=== PATIENT | male | born 1955 | race Caucasian/White ===

== ENCOUNTER 2016-10-14 09:38 | Inpatient (IN) | payer SELFPAY ==
[2016-10-14] MEDS ORDERED: ACETAMINOPHEN 325 MG TABLET PO ONE (10:51)
[2016-10-14 11:04] LABS: PROTHROMBIN TIME 14.8 SEC (11.4-15.4)
[2016-10-14 11:09] LABS: HEMATOCRIT 35.7 % (37.9-51.0); HEMOGLOBIN 11.9 g/dL (13.5-17.0); MEAN CORPUSCULAR HEMOGLOBIN 29.8 pg (27.0-33.4); MEAN CORPUSCULAR HGB CONC 33.3 g/dL (32.0-36.0); MEAN CORPUSCULAR VOLUME 90 fl (80-97); RED BLOOD COUNT 3.99 10^6/uL (4.35-5.55); RED CELL DISTRIBUTION WIDTH 13.4 % (11.5-14.0); WHITE BLOOD COUNT 19.5 10^3/uL (4.0-10.5)
[2016-10-14 11:24] LABS: ALANINE AMINOTRANSFERASE 24 U/L (21-72); ALBUMIN 4.2 g/dL (3.5-5.0); ALKALINE PHOSPHATASE 100 U/L (38-126); ANION GAP 14 (5-19); ASPARTATE AMINO TRANSFERASE 37 U/L (17-59); BILIRUBIN,TOTAL 0.9 mg/dL (0.2-1.3); BLOOD UREA NITROGEN 21 mg/dL (7-20); CALCIUM 9.2 mg/dL (8.4-10.2); CARBON DIOXIDE 22 mmol/L (22-30); CHLORIDE 101 mmol/L (98-107); GLUCOSE 159 mg/dL (75-110); SODIUM 137.2 mmol/L (137-145); TOTAL PROTEIN 8.5 g/dL (6.3-8.2)
[2016-10-14] MEDS ORDERED: VANCOMYCIN HCL INJ 1000 MG VIAL IV ONE (11:25)
[2016-10-14] MEDS ORDERED: PIPERACILLIN/TAZOBACTAM 3.375 GM VIAL IV ONE (11:25)
--- NOTE | 2016-10-14 11:26 | ER Document Report ---
ED Fever - General Chief Complaint: Fever Stated Complaint: FEVER Time seen by provider: 11:21 Mode of Arrival: Ambulatory Information source: Patient Notes: This is a 61-year-old man with a history of diabetes and diabetic wound ulcers who presents to the emergency room with generalized weakness, fevers (103.5 at home). Patient does state his had a nonproductive cough. He denies any abdominal pain, dysuria. He denies any headache, photophobia, nausea or vomiting. TRAVEL OUTSIDE OF THE [place] IN LAST 30 DAYS: No - HPI Onset: Last week Onset/Duration: Gradual Quality of pain: No pain Severity: None Pain Level: Denies Context: denies: Cough, Nausea/vomiting, Recent pneumonia, Urinary tract infection Associated symptoms: Fever, Weakness Similar symptoms previously: Yes Recently seen / treated by doctor: Yes - Related Data Allergies/Adverse Reactions: meperidine HCl [From Demerol] Allergy (Verified 10/14/16 09:51) Home Medications: Current Home Medications Acetaminophen with Codeine [Tylenol #3 Tablet] 1 each PO Q4HP PRN 10/14/16 [ History] Amlodipine Besylate [Norvasc 10 mg Tablet] 10 mg PO DAILY 10/14/16 [History] Atorvastatin Calcium [Lipitor 40 mg Tablet] 40 mg PO DAILY 10/14/16 [History] Gabapentin [Neurontin 300 mg Capsule] 300 mg PO Q8HP PRN 10/14/16 [History] Losartan Potassium [Cozaar 100 mg Tablet] 100 mg PO DAILY 10/14/16 [History] Metformin HCl [Glucophage] 500 mg PO BIDACBS 10/14/16 [History] Metoprolol Tartrate [Lopressor 25 mg Tablet] 12.5 mg PO Q12 10/14/16 [History] Past Medical History - General Information source: Patient - Social History Smoking Status: Current Every Day Smoker Cigarette use (# per day): No Chew tobacco use (# tins/day): No Frequency of alcohol use: None Drug Abuse: None Lives with: Family Family History: Reviewed & Not Pertinent Patient has suicidal ideation: No Patient has homicidal ideation: No - Past Medical History Cardiac Medical History: Reports: Hx Hypertension - CONTROLLED/MEDICATED Denies: Hx Heart Attack Pulmonary Medical History: Denies: Hx Asthma, Hx Tuberculosis Neurological Medical History: Reports: Hx Cerebrovascular Accident - 2013,RIGHT STIFF ACHY,FINE MOTOR SKILLS DECREASED, Hx Seizures - LAST SEIZURE 1970,CAUSED FROM HYPOGLYCEMIA/NO MEDS SINCE 1968 Endocrine Medical History: Reports: Hx Diabetes Mellitus Type 2 Renal/ Medical History: Denies: Hx Peritoneal Dialysis GI Medical History: Denies: Hx Hepatitis, Hx Hiatal Hernia, Hx Ulcer Infectious Medical History: Denies: Hx Hepatitis Past Surgical History: Reports: Hx Genitourinary Surgery - Vasectomy, Hx Orthopedic Surgery - Ulnar nerve there, Hx Tonsillectomy. Denies: Hx Open Heart Surgery, Hx Pacemaker - Immunizations Hx Diphtheria, Pertussis, Tetanus Vaccination: Yes Review of Systems - Review of Systems Constitutional: Chills, Fever, Weakness EENT: No symptoms reported Cardiovascular: No symptoms reported Respiratory: No symptoms reported Gastrointestinal: No symptoms reported Genitourinary: No symptoms reported Male Genitourinary: No symptoms reported Musculoskeletal: See HPI Skin: See HPI Hematologic/Lymphatic: No symptoms reported Neurological/Psychological: No symptoms reported Physical Exam - Vital signs Vitals: Temp Pulse Resp BP Pulse Ox 101.8 F H 97 18 108/77 95 10/14/16 09:40 10/14/16 09:40 10/14/16 09:40 10/14/16 09:40 10/14/16 09:40 Notes: Physical exam: GENERAL: 41-year-old man, alert and oriented 3, appears weak and dehydrated. He is answering questions appropriately. There is clearly an anaerobic smell in the room HEAD: Atraumatic, normocephalic. EYES: Pupils equal round and reactive to light, extraocular movements intact, sclera anicteric, conjunctiva are normal. ENT: TMs normal, nares patent, oropharynx clear without exudates. Dry mucous membranes. NECK: Normal range of motion, supple without lymphadenopathy or JVD. LUNGS: Breath sounds clear to auscultation bilaterally and equal. No wheezes rales or rhonchi. HEART: Regular rate and rhythm without murmurs, rubs or gallops. ABDOMEN: Soft, nontender, normoactive bowel sounds. No guarding, no rebound. No masses appreciated. Rectal: The sacrum is clear and without any type of break down, the perirectal area is without any fluctuance or tenderness. EXTREMITIES: Patient has a diabetic ulcer at the bottom of the right foot which is dressed: The dressing was removed; it shows a healing ulcer to the plantar surface over the MTP joint of the right foot. There is no anaerobic smell. There is no pussy drainage were overlying erythema. Right tib-fib: Patient does have chronic changes with dry skin. There is erythema and warmth over the mid tibial region. There is no fluctuance, open wounds or drainage in this area. Left tib-fib: Dressings were removed: There is a significant anaerobic smell coming from this wound. The dressing removal self debridement the wound which revealed a significant eschar. The eschar is now removed and the wound itself looks shallow, erythematous and no gross pus, but there is a significant anaerobic smell. NEUROLOGICAL: Cranial nerves II through XII grossly intact. Normal speech, moving all extremities PSYCH: Normal mood, normal affect. SKIN: As noted under the extremity exam, no other lesions noted. Course - Re-evaluation Re-evalutation: 10/14/16 13:[address] Tripp who will be admitting patient. IV fluids, IV antibiotics begun. The wound essentially depreciated itself on the dressings were removed. Lactic acid less than 4. Patient's vital signs are stable. I discussed case with Dr. Rand who will see patient in consultation for wound management. The wounds were re-just with wet-to-dry. - Vital Signs Vital signs: Temp Pulse Resp BP Pulse Ox 98.1 F 69 16 104/65 99 10/14/16 17:20 10/14/16 17:20 10/14/16 17:20 10/14/16 17:20 10/14/16 17:20 - Laboratory Result Diagrams: 10/14/16 10:10 10/14/16 10:10 Laboratory results interpreted by me: 10/14/16 10/14/16 10/14/16 10:10 10:10 10:10 WBC 19.5 H RBC 3.99 L Hgb 11.9 L Hct 35.7 L Seg Neuts % (Manual) 87 H Lymphocytes % (Manual) 4 L Abs Neuts (Manual) 17.9 H ESR 98 H BUN 21 H Glucose 159 H C-Reactive Protein Total Protein 8.5 H Urine Blood 10/14/16 10/14/16 10:10 16:25 WBC RBC Hgb Hct Seg Neuts % (Manual) Lymphocytes % (Manual) Abs Neuts (Manual) ESR BUN Glucose C-Reactive Protein 168.0 H Total Protein Urine Blood SMALL H - Diagnostic Test Radiology reviewed: Image reviewed, Reports reviewed - Chest x-ray shows no obvious infiltrates. Right foot shows some irregularities of the bone which may be osteomyelitis. Critical Care Note - Critical Care Note Total time excluding time spent on procedures (mins): 80 Discharge - Discharge Clinical Impression: diabetic foot infection, cellulitis, sepsis Condition: Serious Disposition: ADMITTED INPATIENT Admitting Provider: Tripp Unit Admitted: Telemetry
[2016-10-14 11:31] LABS: BAND NEUTROPHILS % (MANUAL) 5 % (3-5); BASOPHILS % (MANUAL) 0 % (0-2); EOSINOPHILS % (MANUAL) 0 % (0-6); LYMPHOCYTES % (MANUAL) 4 % (13-45); TOTAL CELLS COUNTED 100
[2016-10-14 11:33] LABS: RBC MORPHOLOGY COMMENT NORMO-CYTIC/CHROMIC; TOXIC GRANULATION SLIGHT; TOXIC VACUOLATION PRESENT
[2016-10-14] MEDS: NORMAL SALINE 1000 ML 1,000 ML IV PRN ×2 (12:15→12:48)
[2016-10-14] MEDS ORDERED: NORMAL SALINE 1000 ML 1,000 ML IV PRN (16:55)
[2016-10-14] MEDS ORDERED: OXYCODONE-ACETAMINOPHEN 5-325 MG TABLET PO PRN (16:55)
[2016-10-14] MEDS ORDERED: ACETAMINOPHEN 325 MG TABLET PO PRN (16:55)
[2016-10-14] MEDS ORDERED: ONDANSETRON HCL INJ/PF 4 MG/2 ML SDV IV PRN (16:55)
[2016-10-14 16:57] LABS: APPEARANCE,URINE CLEAR; BILIRUBIN,URINE NEGATIVE (NEGATIVE); GLUCOSE, URINE NEGATIVE (NEGATIVE); KETONES,URINE NEGATIVE (NEGATIVE); LEUKOCYTE ESTERASE,URINE NEGATIVE (NEGATIVE); NITRITE,URINE NEGATIVE (NEGATIVE); PROTEIN,URINE NEGATIVE (NEGATIVE); URINE SPECIFIC GRAVITY 1.008; UROBILINOGEN,URINE NEGATIVE mg/dL (<2.0)
[2016-10-14] MEDS ORDERED: GLUCAGON,HUMAN RECOMB 1 MG INJ IM PRN (16:58)
[2016-10-14] MEDS ORDERED: DEXTROSE 40% GEL 15 GM TUBE PO PRN ×2 (16:58)
[2016-10-14] MEDS ORDERED: DEXTROSE 50%-WATER 25 GM/50 ML DISP.SYRIN IV PRN ×2 (16:58)
[2016-10-14] MEDS ORDERED: INSULIN LISPRO 100 UNIT/ML 3 ML VIAL SUBCUT PRN (16:58)
[2016-10-14] MEDS ORDERED: VANCOMYCIN HCL 0 MG in DEXTROSE 5%-WATER 250 ML IV NR (17:00)
--- NOTE | 2016-10-14 17:52 | PDOC H&P ---
History of Present Illness Admission Date/PCP: 10/14/16 16:55 VICKY DUNAWAY MD Patient complains of: Fever weakness History of Present Illness: KASI MCCAIN JR is a 61 year old male This is a 61-year-old male with the history of the type II diabetes mellitus history of the cerebrovascular accident and history of the chronic right foot wound and currently see her Dr. Ward and also see in the wound care long time. Patient start complaining of fever since last couple of days and feeling weak not doing very well and call Dr. Ward office and suggest come to the emergency department. Patient's also complains some respiratory symptoms and mild cough pt denied any chest pain no shortness of the breath in the ER ptwhite count was elevated and patient's have a 101 fever and patient's a right foot x-ray possible osteomyelitis decided to admit in the hospital patient also received the IV vancomycin and other antibiotic. Saw the patient in the floor patient is doing well denied any foot pain to level some mild respiratory symptoms denied any other problem Past Medical History Cardiac Medical History: Reports: Hypertension - CONTROLLED/MEDICATED Denies: Myocardial Infarction Pulmonary Medical History: Denies: Asthma, Tuberculosis Neurological Medical History: Reports: Hemorrhagic CVA, Seizures - LAST SEIZURE 1970,CAUSED FROM HYPOGLYCEMIA/NO MEDS SINCE 1968 Endocrine Medical History: Reports: Diabetes Mellitus Type 2 GI Medical History: Denies: Hepatitis, Hiatal Hernia Hematology: Denies: Anemia, Sickle Cell Disease Past Surgical History Past Surgical History: Reports: Orthopedic Surgery - Ulnar nerve there, Tonsillectomy Denies: Pacemaker Social History Smoking Status: Never Smoker Frequency of Alcohol Use: Occasional Hx Recreational Drug Use: No Drugs: None Hx Prescription Drug Abuse: No - Advance Directive Resuscitation Status: Full Code Family History Family History: Reviewed & Not Pertinent Parental Family History Reviewed: Yes Children Family History Reviewed: Yes Sibling(s) Family History Reviewed.: Yes Medication/Allergy Home Medications: Acetaminophen with Codeine [Tylenol #3 Tablet] 1 each PO Q4HP PRN 10/14/16 Amlodipine Besylate [Norvasc 10 mg Tablet] 10 mg PO DAILY 10/14/16 Atorvastatin Calcium [Lipitor 40 mg Tablet] 40 mg PO DAILY 10/14/16 Gabapentin [Neurontin 300 mg Capsule] 300 mg PO Q8HP PRN 10/14/16 Losartan Potassium [Cozaar 100 mg Tablet] 100 mg PO DAILY 10/14/16 Metformin HCl [Glucophage] 500 mg PO BIDACBS 10/14/16 Metoprolol Tartrate [Lopressor 25 mg Tablet] 12.5 mg PO Q12 10/14/16 Allergies/Adverse Reactions: meperidine HCl [From Demerol] Allergy (Verified 10/14/16 09:51) Review of Systems Constitutional: PRESENT: chills, fatigue, fever(s), weakness Ears: ABSENT: as per HPI, hearing changes, other Nose, Mouth, and Throat: ABSENT: as per HPI, headache(s), mouth pain, sore throat, vertigo, other Cardiovascular: ABSENT: as per HPI, chest pain, dyspnea on exertion, edema, orthropnea, palpitations, other Respiratory: PRESENT: cough Gastrointestinal: ABSENT: as per HPI, abdominal pain, bloating, coffee ground emesis, constipation, diarrhea, dysphagia, heartburn, hematemesis, hematochezia , melena, nausea, vomiting, other Genitourinary: PRESENT: difficulty urinating Musculoskeletal: PRESENT: muscle weakness Neurological: PRESENT: weakness. ABSENT: as per HPI, abnormal gait, abnormal movements, abnormal speech, confusion, convulsions, dizziness, focal weakness, frequent falls, lack of coordination, memory loss, numbness, paresthesias, restless legs, syncope, tingling, tremor(s), vertigo, other Psychiatric: PRESENT: depression Physical Exam Vital Signs: Temp Pulse Resp BP Pulse Ox 98.1 F 69 16 104/65 99 10/14/16 17:20 10/14/16 17:20 10/14/16 17:20 10/14/16 17:20 10/14/16 17:20 Intake & Output 10/13/16 10/14/16 10/15/16 06:59 06:59 06:59 Weight 105.5 kg General appearance: PRESENT: no acute distress Head exam: PRESENT: normocephalic Eye exam: PRESENT: PERRLA Mouth exam: PRESENT: neck supple Neck exam: PRESENT: full ROM Respiratory exam: PRESENT: clear to auscultation rebecca. ABSENT: wheezes Cardiovascular exam: PRESENT: +S1, +S2 GI/Abdominal exam: PRESENT: normal bowel sounds, soft. ABSENT: tenderness Extremities exam: PRESENT: pedal edema Additional comments: The right foot the dressing intact peripheral pulses diff palpate Neurological exam: PRESENT: alert, awake, oriented to person, oriented to place , oriented to time, oriented to situation Psychiatric exam: PRESENT: normal mood Skin exam: PRESENT: normal color Results Impressions: Chest X-Ray 10/14/16 10:51 IMPRESSION: NO SIGNIFICANT RADIOGRAPHIC FINDING IN THE CHEST. Tibia/Fibula X-Ray 10/14/16 11:26 IMPRESSION: Minimal soft tissue irregularity lateral aspect of the distal left calf. Axial compromised by overlying bandage artifact. No air within the soft tissue of either tib-fib. No radiographic evidence of osteomyelitis. Foot X-Ray 10/14/16 11:27 IMPRESSION: Bandage artifact along the medial aspect of the distal foot. Slightly irregular lucent changes involving the head of the 3rd metatarsal at the metatarsophalangeal joint that could represent developing infection or osteomyelitis. Three-phase bone scan or MRI the foot may be a consideration. Other previously described findings are stable. Assessment & Plan - Diagnosis (1) Fever Qualifiers: Fever type: unspecified Qualified Code(s): R50.9 - Fever, unspecified Is this a current diagnosis for this admission?: YesPlan: Most likely from the foot infections possible upper respiratory tract infections also will get the blood culture urine culture and wound culture and the flu test Start the IV zosyn and vancomycin until the cultures come back (2) Septicemia Is this a current diagnosis for this admission?: YesPlan: Due to the about conditions with continuous IV antibiotic (3) Foot osteomyelitis, right Qualifiers: Chronicity: chronic Qualified Code(s): M86.671 - Other chronic osteomyelitis, right ankle and foot Is this a current diagnosis for this admission?: YesPlan: We will get the MRI of the foot also consult the general surgery (4) Type II diabetes mellitus Qualifiers: Diabetes mellitus complication status: with unspecified complications Is this a current diagnosis for this admission?: YesPlan: Continues a sliding scale with [facility] protocol (5) Benign essential HTN Is this a current diagnosis for this admission?: YesPlan: Continuous current medication (6) Stroke Is this a current diagnosis for this admission?: YesPlan: Stable (7) Upper respiratory tract infection Qualifiers: URI type: unspecified URI Qualified Code(s): J06.9 - Acute upper respiratory infection, unspecified Is this a current diagnosis for this admission?: YesPlan: Get the flu test - Time Time Spent: 30 to 50 Minutes Medications reviewed and adjusted accordingly: Yes Anticipated discharge: Home - Inpatient Certification Medical Necessity: Need For IV Fluids, Need for IV Antibiotics Post Hospital Care: D/C [employer] Documentation - Plan Summary Plan Summary: Start the IV antibiotic get the MRI and consult the general surgery
--- NOTE | 2016-10-14 18:56 | PDOC CONSULTATION ---
Consultation Consult Date: 10/14/16 Attending physician:: VICKY DUNAWAY Consult reason:: Foot problems History of Present Illness Admission Date/PCP: 10/14/16 16:55 VICKY DUNAWAY MD History of Present Illness: KASI MCCAIN JR is a 61 year old male This is a 61-year-old male with the history of the type II diabetes mellitus history of the cerebrovascular accident and history of the chronic right foot wound and currently see her Dr. Ward and also see in the wound care long time. Patient start complaining of fever since last couple of days and feeling weak not doing very well and call Dr. Ward office and suggest come to the emergency department. Patient's also complains some respiratory symptoms and mild cough pt denied any chest pain no shortness of the breath in the ER ptwhite count was elevated and patient's have a 101 fever and patient's a right foot x-ray possible osteomyelitis decided to admit in the hospital patient also received the IV vancomycin and other antibiotic. Saw the patient in the floor patient is doing well denied any foot pain to level some mild respiratory symptoms denied any other problem Surgeons addendum: The patient is 3 years status post CVA, with right hemiparesis, partial. Has a long history of ulceration to the lower lateral aspect of his left leg. Most recent episode occurred 6 weeks ago by his report. 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 Patient denies increased pain, drainage, swelling or any other problems with his feet. Most recently had an Unna boot on the left leg being managed by Dr. Ward. Patient does report coughing up some sputum recently, and sepsis symptoms as described above. Imaging studies today including x-rays of the right foot, and tib-fib bilaterally show soft tissue changes to the left distal and lateral calf region , and probable early appearing changes to the right third metatarsal phalangeal region. There is no evidence of soft tissue gas. Past Medical History Cardiac Medical History: Reports: Hypertension - CONTROLLED/MEDICATED Denies: Myocardial Infarction Pulmonary Medical History: Denies: Asthma, Tuberculosis Neurological Medical History: Reports: Hemorrhagic CVA, Seizures - LAST SEIZURE 1970,CAUSED FROM HYPOGLYCEMIA/NO MEDS SINCE 1968 Endocrine Medical History: Reports: Diabetes Mellitus Type 2 GI Medical History: Denies: Hepatitis, Hiatal Hernia Hematology: Denies: Anemia, Sickle Cell Disease Past Surgical History Past Surgical History: Reports: Orthopedic Surgery - Ulnar nerve there, Tonsillectomy Denies: Pacemaker Social History Smoking Status: Never Smoker Frequency of Alcohol Use: Occasional Hx Recreational Drug Use: No Drugs: None Hx Prescription Drug Abuse: No - Advance Directive Resuscitation Status: Full Code Family History Family History: Reviewed & Not Pertinent Parental Family History Reviewed: Yes Children Family History Reviewed: Yes Sibling(s) Family History Reviewed.: Yes Medication/Allergy Home Medications: Acetaminophen with Codeine [Tylenol #3 Tablet] 1 each PO Q4HP PRN 10/14/16 Amlodipine Besylate [Norvasc 10 mg Tablet] 10 mg PO DAILY 10/14/16 Atorvastatin Calcium [Lipitor 40 mg Tablet] 40 mg PO DAILY 10/14/16 Gabapentin [Neurontin 300 mg Capsule] 300 mg PO Q8HP PRN 10/14/16 Losartan Potassium [Cozaar 100 mg Tablet] 100 mg PO DAILY 10/14/16 Metformin HCl [Glucophage] 500 mg PO BIDACBS 10/14/16 Metoprolol Tartrate [Lopressor 25 mg Tablet] 12.5 mg PO Q12 10/14/16 Allergies/Adverse Reactions: meperidine HCl [From Demerol] Allergy (Verified 10/14/16 09:51) Physical Exam Vital Signs: Temp Pulse Resp BP Pulse Ox 98.1 F 69 16 104/65 99 10/14/16 17:20 10/14/16 17:20 10/14/16 17:20 10/14/16 17:20 10/14/16 17:20 Intake & Output 10/13/16 10/14/16 10/15/16 06:59 06:59 06:59 Intake Total 490 Balance 490 Weight 105.5 kg General appearance: PRESENT: no acute distress Head exam: PRESENT: normocephalic Eye exam: PRESENT: other Ear exam: PRESENT: normal external ear exam - Some disconjugate gaze Mouth exam: PRESENT: moist Respiratory exam: PRESENT: clear to auscultation rebecca Cardiovascular exam: PRESENT: RRR Pulses: PRESENT: normal carotid pulses, normal radial pulses Vascular exam: PRESENT: normal capillary refill GI/Abdominal exam: PRESENT: soft Rectal exam: PRESENT: deferred Musculoskeletal exam: PRESENT: other - Left lower extremity examined. Evidence of recent Unna boot. There is a chronic ulcerated area to the lateral lower leg above the malleolus approximately 5 x 10 cm, with evidence of the chronic partial regranulation. Does note, foul smell or evidence of eliot cellulitis. The left foot is warm although I cannot palpate pulses. No obvious deformity of the toes Right foot examined. His chronic exfoliation of skin with rosaline- epithelium underlying, intact healthy no drainage no clinical signs of infection. The chronic changes to the metacarpal phalangeal joints, worse toes 1 and 2 and 3. I cannot detect any open wounds, foul smell or drainage. Results Impressions: Chest X-Ray 10/14/16 10:51 IMPRESSION: NO SIGNIFICANT RADIOGRAPHIC FINDING IN THE CHEST. Tibia/Fibula X-Ray 10/14/16 11:26 IMPRESSION: Minimal soft tissue irregularity lateral aspect of the distal left calf. Axial compromised by overlying bandage artifact. No air within the soft tissue of either tib-fib. No radiographic evidence of osteomyelitis. Foot X-Ray 10/14/16 11:27 IMPRESSION: Bandage artifact along the medial aspect of the distal foot. Slightly irregular lucent changes involving the head of the 3rd metatarsal at the metatarsophalangeal joint that could represent developing infection or osteomyelitis. Three-phase bone scan or MRI the foot may be a consideration. Other previously described findings are stable. Assessment & Plan - Diagnosis (1) Foot osteomyelitis, right Qualifiers: Chronicity: chronic Qualified Code(s): M86.671 - Other chronic osteomyelitis, right ankle and foot Is this a current diagnosis for this admission?: YesPlan: 1. The right foot has chronic deformities of the metatarsal phalangeal joints likely secondary to diabetes mellitus, and previous stroke. Plain films suggest right third metatarsal head abnormality; there is no active soft tissue ulcer at this time. 2. The right lower extremity has evidence of reepithelialization from the subacute cellulitis. Currently there is no active infection in the right lower leg. 3. The chronic left lower extremity lateral super malleolus wound shows evidence of slow, incomplete healing with biofilm. I do not see any evidence of acute infection requiring drainage, debridement etc. 4. Will initiate dressing changes, and await arteriographic and radiographic evaluation. (2) Fever Qualifiers: Fever type: unspecified Qualified Code(s): R50.9 - Fever, unspecified Is this a current diagnosis for this admission?: Yes (3) Benign essential HTN Is this a current diagnosis for this admission?: Yes - Time Time Spent: 30 to 50 Minutes Critical Time spent with patient: 15-24 minutes Anticipated discharge: Home
[2016-10-14] MEDS ORDERED: PIPERACILLIN SODIUM/TAZOBACTAM 3.375 GM in NORMAL SALINE 100 ML IV ONE (19:00)
[2016-10-14] MEDS ORDERED: LOSARTAN POTASSIUM 50 MG TABLET PO ONE (19:00)
[2016-10-14] MEDS: VANCOMYCIN HCL 1,250 MG in DEXTROSE 5%-WATER 250 ML IV SCH (22:22)
[2016-10-14] MEDS: METOPROLOL TARTRATE 25 MG TABLET PO SCH (23:50)
[2016-10-15] MEDS: PIPERACILLIN SODIUM/TAZOBACTAM 3.375 GM in NORMAL SALINE 100 ML IV SCH ×4 (01:08→17:19)
[2016-10-15] MEDS: GABAPENTIN 300 MG CAPSULE PO PRN ×3 (01:46→19:19)
[2016-10-15 05:57] LABS: ABSOLUTE BASOPHILS # (AUTO) 0.1 10^3/uL (0.0-0.2); ABSOLUTE EOSINOPHILS # (AUTO) 0.1 10^3/uL (0.0-0.6); ABSOLUTE LYMPHOCYTES (AUTO) 1.3 10^3/uL (0.5-4.7); ABSOLUTE MONOCYTES (AUTO) 1.9 10^3/uL (0.1-1.4); ABSOLUTE NEUT (AUTO) 8.5 10^3/uL (1.7-8.2); BASOPHILS % (AUTO) 0.6 % (0-2); EOSINOPHILS % (AUTO) 1.3 % (0-6); HEMATOCRIT 31.3 % (37.9-51.0); HEMOGLOBIN 10.6 g/dL (13.5-17.0); HGB HCT DIFFERENCE 0.5; LYMPHOCYTES % (AUTO) 10.6 % (13-45); MEAN CORPUSCULAR HEMOGLOBIN 29.9 pg (27.0-33.4); MEAN CORPUSCULAR HGB CONC 33.8 g/dL (32.0-36.0); MEAN CORPUSCULAR VOLUME 89 fl (80-97); MONOCYTES % (AUTO) 15.9 % (3-13); RED BLOOD COUNT 3.54 10^6/uL (4.35-5.55); RED CELL DISTRIBUTION WIDTH 13.7 % (11.5-14.0); SEGMENTED NEUTROPHILS % (AUTO) 71.6 % (42-78); WHITE BLOOD COUNT 11.9 10^3/uL (4.0-10.5)
[2016-10-15 06:09] LABS: ANION GAP 11 (5-19); BLOOD UREA NITROGEN 17 mg/dL (7-20); CALCIUM 8.4 mg/dL (8.4-10.2); CARBON DIOXIDE 26 mmol/L (22-30); CHLORIDE 104 mmol/L (98-107); CREATININE RESULT 0.98 mg/dL (0.52-1.25); GLUCOSE 97 mg/dL (75-110); POTASSIUM 4.3 mmol/L (3.6-5.0); SODIUM 140.6 mmol/L (137-145)
[2016-10-15] MEDS: AMLODIPINE BESYLATE 10 MG TABLET PO SCH (10:47)
[2016-10-15] MEDS: LOSARTAN POTASSIUM 50 MG TABLET PO SCH (10:48)
[2016-10-15] MEDS: METOPROLOL TARTRATE 25 MG TABLET PO SCH ×2 (10:48→22:36)
[2016-10-15] MEDS: METFORMIN HCL 500 MG TABLET PO SCH ×2 (10:49→17:19)
[2016-10-15] MEDS: ATORVASTATIN CALCIUM 40 MG TABLET PO SCH (10:49)
[2016-10-15] MEDS: DOCUSATE SODIUM 100 MG CAPSULE PO SCH (10:49)
[2016-10-15] MEDS: ENOXAPARIN SODIUM INJ 40 MG/0.4 ML DISP.SYRIN SUBCUT SCH (10:50)
[2016-10-15] MEDS: VANCOMYCIN HCL 1,250 MG in DEXTROSE 5%-WATER 250 ML IV SCH ×2 (10:53→22:36)
--- NOTE | 2016-10-15 13:10 | XCELERA REPORT ---
[address] [address] Lower Extremity Arterial Evaluation Name: KASI MCCAIN JR Age: 61 yrs Gender: Male : 1955 Patient Status: Inpatient Patient Location: [id number] Study Date: 10/15/2016 09:52 AM Procedure: A color flow and duplex scan of the lower extremity arteries was performed bilaterally with velocity and waveform anaylsis. 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 The ankle-brachial index is 1.23. 0% stenosis is noted. Left Side Arterial Evaluation Normal velocity, waveform and triphasic flow are present, from the Common Femoral artery down to the infrageniculate vessels. The ankle-brachial index is 1.25. 0 % stenosis is noted. Interpretation Summary No hemodynamically significant lesions in the bilateral lower extremities, on duplex imaging, at rest. : MAURICE BENAVIDES > Giovanni Piper
--- NOTE | 2016-10-15 13:53 | PDOC PROGRESS REPORT ---
Subjective Progress Note for:: 10/15/16 Subjective:: pt is doing well afebrile nocp no sob pt seen by surgery and s/o cont ax and no need any surgical intenvention Physical Exam Vital Signs: Temp Pulse Resp BP Pulse Ox 99.1 F 85 12 149/77 H 100 10/15/16 12:01 10/15/16 12:01 10/15/16 12:01 10/15/16 12:01 10/15/16 12:01 Intake & Output 10/14/16 10/15/16 10/16/16 06:59 06:59 06:59 Intake Total 2313 Balance 2313 Weight 109.4 kg General appearance: PRESENT: no acute distress Eye exam: PRESENT: PERRLA Mouth exam: PRESENT: neck supple Respiratory exam: PRESENT: clear to auscultation rebecca Cardiovascular exam: PRESENT: +S1, +S2 GI/Abdominal exam: PRESENT: normal bowel sounds, soft. ABSENT: tenderness Extremities exam: ABSENT: pedal edema Additional comments: dressing intact both leg Psychiatric exam: PRESENT: anxious Results Laboratory Results: 10/15/16 04:51 10/15/16 04:51 10/15/16 10/15/16 04:51 04:51 WBC 11.9 H RBC 3.54 L Hgb 10.6 L Hct 31.3 L MCV 89 MCH 29.9 MCHC 33.8 RDW 13.7 Plt Count 220 Seg Neutrophils % 71.6 Lymphocytes % 10.6 L Monocytes % 15.9 H Eosinophils % 1.3 Basophils % 0.6 Absolute Neutrophils 8.5 H Absolute Lymphocytes 1.3 Absolute Monocytes 1.9 H Absolute Eosinophils 0.1 Absolute Basophils 0.1 Sodium 140.6 Potassium 4.3 Chloride 104 Carbon Dioxide 26 Anion Gap 11 BUN 17 Creatinine 0.98 Est GFR ( Amer) > 60 Est GFR (Non-Af Amer) > 60 Glucose 97 Calcium 8.4 Impressions: Chest X-Ray 10/14/16 10:51 IMPRESSION: NO SIGNIFICANT RADIOGRAPHIC FINDING IN THE CHEST. Tibia/Fibula X-Ray 10/14/16 11:26 IMPRESSION: Minimal soft tissue irregularity lateral aspect of the distal left calf. Axial compromised by overlying bandage artifact. No air within the soft tissue of either tib-fib. No radiographic evidence of osteomyelitis. Foot X-Ray 10/14/16 11:27 IMPRESSION: Bandage artifact along the medial aspect of the distal foot. Slightly irregular lucent changes involving the head of the 3rd metatarsal at the metatarsophalangeal joint that could represent developing infection or osteomyelitis. Three-phase bone scan or MRI the foot may be a consideration. Other previously described findings are stable. Assessment & Plan - Diagnosis (1) Fever Qualifiers: Fever type: unspecified Qualified Code(s): R50.9 - Fever, unspecified Is this a current diagnosis for this admission?: YesPlan: awit for culture cont curr medication (2) Septicemia Is this a current diagnosis for this admission?: YesPlan: Due to the about conditions with continuous IV antibiotic (3) Foot osteomyelitis, right Qualifiers: Chronicity: chronic Qualified Code(s): M86.671 - Other chronic osteomyelitis, right ankle and foot Is this a current diagnosis for this admission?: YesPlan: We will get the MRI of the foot also consult the general surgery (4) Type II diabetes mellitus Qualifiers: Diabetes mellitus complication status: with unspecified complications Is this a current diagnosis for this admission?: YesPlan: Continues a sliding scale with [facility] protocol (5) Benign essential HTN Is this a current diagnosis for this admission?: YesPlan: Continuous current medication (6) Stroke Is this a current diagnosis for this admission?: YesPlan: Stable (7) Upper respiratory tract infection Qualifiers: URI type: unspecified URI Qualified Code(s): J06.9 - Acute upper respiratory infection, unspecified; B97.89 - Other viral agents as the cause of diseases classified elsewhere Is this a current diagnosis for this admission?: YesPlan: all stable - Time Time Spent with patient: 15-24 minutes Medications reviewed and adjusted accordingly: Yes Anticipated discharge: Home - Inpatient Certification Medical Necessity: Need Close Monitoring Due to Risk of Patient Decompensation, Need for IV Antibiotics
--- NOTE | 2016-10-15 17:11 | PDOC PROGRESS REPORT ---
Subjective Subjective:: Reports still has swelling and tenderness of his right lower extremity, but it has improved. Reports limited ability to elevate yesterday due to variety of tests, studies & transport. Nursing has just cleansed it and in doing so removed some skin/slough. Physical Exam Vital Signs: Temp Pulse Resp BP Pulse Ox 99.1 F 85 12 149/77 H 100 10/15/16 12:01 10/15/16 12:01 10/15/16 12:01 10/15/16 12:01 10/15/16 12:01 Intake & Output 10/14/16 10/15/16 10/16/16 06:59 06:59 06:59 Intake Total 2313 Balance 2313 Weight 109.4 kg General appearance: PRESENT: no acute distress, obese Head exam: PRESENT: normocephalic Extremities exam: PRESENT: other - Left lateral malleolus ulcer, at least stage II. Fibrinous exudate in the base, dry scrubbed with gauze. Redressed with Telfa and Kerlix gauze. Right lower extremity with edema, erythema and induration starting in the rear foot/ankle and extending up almost to the tibial plateau.. Patient reports this is improved. He has a first metatarsal head ulcer, subcentimeter, full-thickness, appears to be stage III. No drainage. No other open sores are noted on the leg. Redressed with gauze 4 x 4 's and Kerlix roll. Patient's lower extremities then placed in a elevated position, over the level of the heart. Neurological exam: PRESENT: alert, oriented to person, oriented to place, oriented to time, oriented to situation Psychiatric exam: PRESENT: appropriate affect, normal mood Results Laboratory Results: 10/15/16 04:51 10/15/16 04:51 10/15/16 10/15/16 04:51 04:51 WBC 11.9 H RBC 3.54 L Hgb 10.6 L Hct 31.3 L MCV 89 MCH 29.9 MCHC 33.8 RDW 13.7 Plt Count 220 Seg Neutrophils % 71.6 Lymphocytes % 10.6 L Monocytes % 15.9 H Eosinophils % 1.3 Basophils % 0.6 Absolute Neutrophils 8.5 H Absolute Lymphocytes 1.3 Absolute Monocytes 1.9 H Absolute Eosinophils 0.1 Absolute Basophils 0.1 Sodium 140.6 Potassium 4.3 Chloride 104 Carbon Dioxide 26 Anion Gap 11 BUN 17 Creatinine 0.98 Est GFR ( Amer) > 60 Est GFR (Non-Af Amer) > 60 Glucose 97 Calcium 8.4 Impressions: Chest X-Ray 10/14/16 10:51 IMPRESSION: NO SIGNIFICANT RADIOGRAPHIC FINDING IN THE CHEST. Tibia/Fibula X-Ray 10/14/16 11:26 IMPRESSION: Minimal soft tissue irregularity lateral aspect of the distal left calf. Axial compromised by overlying bandage artifact. No air within the soft tissue of either tib-fib. No radiographic evidence of osteomyelitis. Foot X-Ray 10/14/16 11:27 IMPRESSION: Bandage artifact along the medial aspect of the distal foot. Slightly irregular lucent changes involving the head of the 3rd metatarsal at the metatarsophalangeal joint that could represent developing infection or osteomyelitis. Three-phase bone scan or MRI the foot may be a consideration. Other previously described findings are stable. Assessment & Plan - Diagnosis (1) Type II diabetes mellitus Qualifiers: Diabetes mellitus complication status: with unspecified complications Is this a current diagnosis for this admission?: YesPlan: Per internal medicine. (2) Cellulitis of right lower leg Is this a current diagnosis for this admission?: YesPlan: Patient reports improving. White count is improved. Continue antibiotics. (3) Diabetic ulcer of right foot Qualifiers: Diabetes mellitus type: type 2 Qualified Code(s): E11.621 - Type 2 diabetes mellitus with foot ulcer; L97.519 - Non-pressure chronic ulcer of other part of right foot with unspecified severity Is this a current diagnosis for this admission?: YesPlan: Arterial ultrasound studies did not show any compromise down to the level of the infrageniculate's. Questionable as to whether there is osteomyelitis. Internal medicine has ordered an MRI to delineate. Will need long-term antibiotics if he does. Surgery will sign off. Reconsult as necessary.
[2016-10-16] MEDS: PIPERACILLIN SODIUM/TAZOBACTAM 3.375 GM in NORMAL SALINE 100 ML IV SCH ×5 (00:37→23:20)
[2016-10-16 04:46] LABS: ABSOLUTE BASOPHILS # (AUTO) 0.1 10^3/uL (0.0-0.2); ABSOLUTE EOSINOPHILS # (AUTO) 0.2 10^3/uL (0.0-0.6); ABSOLUTE LYMPHOCYTES (AUTO) 1.3 10^3/uL (0.5-4.7); ABSOLUTE MONOCYTES (AUTO) 1.8 10^3/uL (0.1-1.4); ABSOLUTE NEUT (AUTO) 7.8 10^3/uL (1.7-8.2); BASOPHILS % (AUTO) 0.6 % (0-2); EOSINOPHILS % (AUTO) 1.9 % (0-6); HEMATOCRIT 30.1 % (37.9-51.0); HEMOGLOBIN 10.2 g/dL (13.5-17.0); HGB HCT DIFFERENCE 0.5; LYMPHOCYTES % (AUTO) 11.6 % (13-45); MEAN CORPUSCULAR HEMOGLOBIN 30.1 pg (27.0-33.4); MEAN CORPUSCULAR VOLUME 89 fl (80-97); MONOCYTES % (AUTO) 16.2 % (3-13); RED CELL DISTRIBUTION WIDTH 13.6 % (11.5-14.0); SEGMENTED NEUTROPHILS % (AUTO) 69.7 % (42-78); WHITE BLOOD COUNT 11.2 10^3/uL (4.0-10.5)
[2016-10-16 05:17] LABS: ANION GAP 13 (5-19); BLOOD UREA NITROGEN 12 mg/dL (7-20); CALCIUM 8.8 mg/dL (8.4-10.2); CARBON DIOXIDE 23 mmol/L (22-30); CHLORIDE 106 mmol/L (98-107); CREATININE RESULT 0.88 mg/dL (0.52-1.25); GLUCOSE 87 mg/dL (75-110); POTASSIUM 3.9 mmol/L (3.6-5.0); SODIUM 141.5 mmol/L (137-145)
[2016-10-16] MEDS: METFORMIN HCL 500 MG TABLET PO SCH ×2 (07:53→17:35)
--- NOTE | 2016-10-16 08:06 | PDOC PROGRESS REPORT ---
Subjective Progress Note for:: 10/16/16 Subjective:: Patient is doing fair c/o for right foot pain swelling. MRI of the right foot did not show any osteomyelitis. Denied any chest pain no shortness of the breath no fever Physical Exam Vital Signs: Temp Pulse Resp BP Pulse Ox 98.7 F 78 19 133/67 H 97 10/16/16 03:36 10/16/16 03:36 10/16/16 03:36 10/16/16 03:36 10/16/16 03:36 Intake & Output 10/15/16 10/16/16 10/17/16 06:59 06:59 06:59 Intake Total 2313 3305 Balance 2313 3305 Weight 109.4 kg 111 kg General appearance: PRESENT: no acute distress Head exam: PRESENT: normocephalic Eye exam: PRESENT: PERRLA Mouth exam: PRESENT: neck supple Neck exam: ABSENT: full ROM Respiratory exam: PRESENT: clear to auscultation rebecca Cardiovascular exam: PRESENT: RRR, +S1, +S2 GI/Abdominal exam: PRESENT: normal bowel sounds, soft. ABSENT: tenderness Extremities exam: ABSENT: pedal edema Additional comments: Right foot the dressing intact some mild redness Neurological exam: PRESENT: alert, awake, oriented to person, oriented to place , oriented to time, oriented to situation Psychiatric exam: PRESENT: normal mood Skin exam: PRESENT: normal color Results Laboratory Results: 10/16/16 04:08 10/16/16 04:08 10/16/16 10/16/16 04:08 04:08 WBC 11.2 H RBC 3.40 L Hgb 10.2 L Hct 30.1 L MCV 89 MCH 30.1 MCHC 34.0 RDW 13.6 Plt Count 224 Seg Neutrophils % 69.7 Lymphocytes % 11.6 L Monocytes % 16.2 H Eosinophils % 1.9 Basophils % 0.6 Absolute Neutrophils 7.8 Absolute Lymphocytes 1.3 Absolute Monocytes 1.8 H Absolute Eosinophils 0.2 Absolute Basophils 0.1 Sodium 141.5 Potassium 3.9 Chloride 106 Carbon Dioxide 23 Anion Gap 13 BUN 12 Creatinine 0.88 Est GFR ( Amer) > 60 Est GFR (Non-Af Amer) > 60 Glucose 87 Calcium 8.8 Impressions: Chest X-Ray 10/14/16 10:51 IMPRESSION: NO SIGNIFICANT RADIOGRAPHIC FINDING IN THE CHEST. Tibia/Fibula X-Ray 10/14/16 11:26 IMPRESSION: Minimal soft tissue irregularity lateral aspect of the distal left calf. Axial compromised by overlying bandage artifact. No air within the soft tissue of either tib-fib. No radiographic evidence of osteomyelitis. Foot X-Ray 10/14/16 11:27 IMPRESSION: Bandage artifact along the medial aspect of the distal foot. Slightly irregular lucent changes involving the head of the 3rd metatarsal at the metatarsophalangeal joint that could represent developing infection or osteomyelitis. Three-phase bone scan or MRI the foot may be a consideration. Other previously described findings are stable. Lower Extremity MRI 10/15/16 00:00 IMPRESSION: No evidence for osteomyelitis. No soft tissue abscess. Interval amputation of the seconds toe. Assessment & Plan - Diagnosis (1) Fever Qualifiers: Fever type: unspecified Qualified Code(s): R50.9 - Fever, unspecified Is this a current diagnosis for this admission?: YesPlan: All resolving (2) Septicemia Is this a current diagnosis for this admission?: YesPlan: ALT culture is negative (3) Foot osteomyelitis, right Qualifiers: Chronicity: chronic Qualified Code(s): M86.671 - Other chronic osteomyelitis, right ankle and foot Is this a current diagnosis for this admission?: YesPlan: No sign of osteomyelitis on MRI (4) Type II diabetes mellitus Qualifiers: Diabetes mellitus complication status: with unspecified complications Is this a current diagnosis for this admission?: YesPlan: Continues a sliding scale with [facility] protocol (5) Benign essential HTN Is this a current diagnosis for this admission?: YesPlan: Continuous current medication (6) Stroke Is this a current diagnosis for this admission?: YesPlan: Stable (7) Upper respiratory tract infection Qualifiers: URI type: unspecified URI Qualified Code(s): J06.9 - Acute upper respiratory infection, unspecified; B97.89 - Other viral agents as the cause of diseases classified elsewhere Is this a current diagnosis for this admission?: YesPlan: Repeat the chest x-ray - Time Time Spent with patient: 15-24 minutes Medications reviewed and adjusted accordingly: Yes Anticipated discharge: Home Within: within 24 hours - Inpatient Certification Medical Necessity: Need Close Monitoring Due to Risk of Patient Decompensation, Need for IV Antibiotics
[2016-10-16] MEDS: ENOXAPARIN SODIUM INJ 40 MG/0.4 ML DISP.SYRIN SUBCUT SCH (08:09)
[2016-10-16] MEDS: LOSARTAN POTASSIUM 50 MG TABLET PO SCH (09:37)
[2016-10-16] MEDS: DOCUSATE SODIUM 100 MG CAPSULE PO SCH (09:38)
[2016-10-16] MEDS: ATORVASTATIN CALCIUM 40 MG TABLET PO SCH (09:38)
[2016-10-16] MEDS: METOPROLOL TARTRATE 25 MG TABLET PO SCH ×2 (09:39→21:33)
[2016-10-16] MEDS: AMLODIPINE BESYLATE 10 MG TABLET PO SCH (09:39)
[2016-10-16 10:16] LABS: CREATININE RESULT 0.83 mg/dL (0.52-1.25)
[2016-10-16] MEDS: GABAPENTIN 300 MG CAPSULE PO SCH ×3 (11:30→23:20)
[2016-10-16] MEDS: NORMAL SALINE 1000 ML 1,000 ML IV PRN (11:37)
[2016-10-17] MEDS: GABAPENTIN 300 MG CAPSULE PO SCH ×4 (06:19→23:03)
[2016-10-17] MEDS: PIPERACILLIN SODIUM/TAZOBACTAM 3.375 GM in NORMAL SALINE 100 ML IV SCH (06:19)
[2016-10-17 06:54] LABS: ABSOLUTE BASOPHILS # (AUTO) 0.1 10^3/uL (0.0-0.2); ABSOLUTE EOSINOPHILS # (AUTO) 0.3 10^3/uL (0.0-0.6); ABSOLUTE LYMPHOCYTES (AUTO) 1.7 10^3/uL (0.5-4.7); ABSOLUTE MONOCYTES (AUTO) 1.7 10^3/uL (0.1-1.4); ABSOLUTE NEUT (AUTO) 8.6 10^3/uL (1.7-8.2); BASOPHILS % (AUTO) 0.4 % (0-2); EOSINOPHILS % (AUTO) 2.5 % (0-6); HEMATOCRIT 31.7 % (37.9-51.0); HEMOGLOBIN 10.6 g/dL (13.5-17.0); HGB HCT DIFFERENCE 0.1; LYMPHOCYTES % (AUTO) 13.6 % (13-45); MEAN CORPUSCULAR HEMOGLOBIN 29.7 pg (27.0-33.4); MEAN CORPUSCULAR HGB CONC 33.3 g/dL (32.0-36.0); MEAN CORPUSCULAR VOLUME 89 fl (80-97); MONOCYTES % (AUTO) 13.4 % (3-13); RED BLOOD COUNT 3.56 10^6/uL (4.35-5.55); RED CELL DISTRIBUTION WIDTH 13.3 % (11.5-14.0); SEGMENTED NEUTROPHILS % (AUTO) 70.1 % (42-78); WHITE BLOOD COUNT 12.3 10^3/uL (4.0-10.5)
[2016-10-17 07:12] LABS: ANION GAP 12 (5-19); BLOOD UREA NITROGEN 11 mg/dL (7-20); CALCIUM 9.2 mg/dL (8.4-10.2); CARBON DIOXIDE 25 mmol/L (22-30); CHLORIDE 104 mmol/L (98-107); CREATININE RESULT 0.86 mg/dL (0.52-1.25); GLUCOSE 103 mg/dL (75-110); POTASSIUM 4.4 mmol/L (3.6-5.0); SODIUM 140.8 mmol/L (137-145)
--- NOTE | 2016-10-17 08:19 | PDOC PROGRESS REPORT ---
Subjective Progress Note for:: 10/17/16 Subjective:: ptt doing much better this morning patient's denied any chest pain no shortness of the breath to have some low-grade fever other than that no other events happen overnight. White count is mildly elevated Physical Exam Vital Signs: Temp Pulse Resp BP Pulse Ox 98.4 F 75 18 130/72 H 99 10/17/16 06:51 10/17/16 02:00 10/16/16 23:16 10/16/16 23:16 10/16/16 23:16 Intake & Output 10/16/16 10/17/16 10/18/16 06:59 06:59 06:59 Intake Total 3305 2338 Balance 3305 2338 Weight 111 kg 111.5 kg General appearance: PRESENT: no acute distress Head exam: PRESENT: normocephalic Eye exam: PRESENT: PERRLA Mouth exam: PRESENT: neck supple Respiratory exam: PRESENT: clear to auscultation rebecca Cardiovascular exam: PRESENT: +S1, +S2 GI/Abdominal exam: PRESENT: normal bowel sounds, soft. ABSENT: tenderness Extremities exam: ABSENT: pedal edema Additional comments: The right foot and the left leg the dressing is intact Neurological exam: PRESENT: alert, awake, oriented to person Skin exam: PRESENT: normal color Results Laboratory Results: 10/17/16 06:33 10/17/16 06:33 10/16/16 10/17/16 10/17/16 09:30 06:33 06:33 WBC 12.3 H RBC 3.56 L Hgb 10.6 L Hct 31.7 L MCV 89 MCH 29.7 MCHC 33.3 RDW 13.3 Plt Count 255 Seg Neutrophils % 70.1 Lymphocytes % 13.6 Monocytes % 13.4 H Eosinophils % 2.5 Basophils % 0.4 Absolute Neutrophils 8.6 H Absolute Lymphocytes 1.7 Absolute Monocytes 1.7 H Absolute Eosinophils 0.3 Absolute Basophils 0.1 Sodium 140.8 Potassium 4.4 Chloride 104 Carbon Dioxide 25 Anion Gap 12 BUN 11 Creatinine 0.83 0.86 Est GFR ( Amer) > 60 > 60 Est GFR (Non-Af Amer) > 60 > 60 Glucose 103 Calcium 9.2 10/14/16 18:00 Foot - Bottom Gram Stain - Final Impressions: Tibia/Fibula X-Ray 10/14/16 11:26 IMPRESSION: Minimal soft tissue irregularity lateral aspect of the distal left calf. Axial compromised by overlying bandage artifact. No air within the soft tissue of either tib-fib. No radiographic evidence of osteomyelitis. Foot X-Ray 10/14/16 11:27 IMPRESSION: Bandage artifact along the medial aspect of the distal foot. Slightly irregular lucent changes involving the head of the 3rd metatarsal at the metatarsophalangeal joint that could represent developing infection or osteomyelitis. Three-phase bone scan or MRI the foot may be a consideration. Other previously described findings are stable. Lower Extremity MRI 10/15/16 00:00 IMPRESSION: No evidence for osteomyelitis. No soft tissue abscess. Interval amputation of the seconds toe. Chest X-Ray 10/16/16 00:00 IMPRESSION: NO SIGNIFICANT RADIOGRAPHIC FINDING IN THE CHEST. Assessment & Plan - Diagnosis (1) Fever Qualifiers: Fever type: unspecified Qualified Code(s): R50.9 - Fever, unspecified Is this a current diagnosis for this admission?: YesPlan: Most likely from the wound or respiratory viral sources (2) Septicemia Is this a current diagnosis for this admission?: YesPlan: Sign of osteomyelitis will switch to by mouth antibiotic (3) Foot osteomyelitis, right Qualifiers: Chronicity: chronic Qualified Code(s): M86.671 - Other chronic osteomyelitis, right ankle and foot Is this a current diagnosis for this admission?: YesPlan: No sign of osteomyelitis on MRI (4) Type II diabetes mellitus Qualifiers: Diabetes mellitus complication status: with unspecified complications Is this a current diagnosis for this admission?: YesPlan: Continues a sliding scale with [facility] protocol (5) Benign essential HTN Is this a current diagnosis for this admission?: YesPlan: Continuous current medication (6) Stroke Is this a current diagnosis for this admission?: YesPlan: Stable (7) Upper respiratory tract infection Qualifiers: URI type: unspecified URI Qualified Code(s): J06.9 - Acute upper respiratory infection, unspecified; B97.89 - Other viral agents as the cause of diseases classified elsewhere Is this a current diagnosis for this admission?: YesPlan: Repeat the chest x-ray - Time Time Spent with patient: 15-24 minutes Medications reviewed and adjusted accordingly: Yes Anticipated discharge: Home - Inpatient Certification Medical Necessity: Need for IV Antibiotics - Plan Summary Plan Summary: The patient remained afebrile and the white count is stable plan to d/c next 24 hours
[2016-10-17] MEDS: METFORMIN HCL 500 MG TABLET PO SCH ×2 (08:27→17:44)
[2016-10-17] MEDS: ENOXAPARIN SODIUM INJ 40 MG/0.4 ML DISP.SYRIN SUBCUT SCH (08:29)
[2016-10-17] MEDS: ATORVASTATIN CALCIUM 40 MG TABLET PO SCH (10:38)
[2016-10-17] MEDS: AMLODIPINE BESYLATE 10 MG TABLET PO SCH (10:38)
[2016-10-17] MEDS: METOPROLOL TARTRATE 25 MG TABLET PO SCH ×2 (10:39→22:03)
[2016-10-17] MEDS: DOCUSATE SODIUM 100 MG CAPSULE PO SCH (10:39)
[2016-10-17] MEDS: SULFAMETHOXAZOLE/TRIMETHOPRIM 800-160 MG TABLET PO SCH ×2 (10:39→17:45)
[2016-10-17] MEDS: LOSARTAN POTASSIUM 50 MG TABLET PO SCH (10:39)
[2016-10-18] MEDS: GABAPENTIN 300 MG CAPSULE PO SCH (06:25)
[2016-10-18 07:13] LABS: ABSOLUTE BASOPHILS # (AUTO) 0.1 10^3/uL (0.0-0.2); ABSOLUTE EOSINOPHILS # (AUTO) 0.4 10^3/uL (0.0-0.6); ABSOLUTE LYMPHOCYTES (AUTO) 1.8 10^3/uL (0.5-4.7); ABSOLUTE MONOCYTES (AUTO) 1.2 10^3/uL (0.1-1.4); ABSOLUTE NEUT (AUTO) 7.2 10^3/uL (1.7-8.2); BASOPHILS % (AUTO) 0.8 % (0-2); EOSINOPHILS % (AUTO) 4.1 % (0-6); HEMATOCRIT 31.2 % (37.9-51.0); HEMOGLOBIN 10.5 g/dL (13.5-17.0); HGB HCT DIFFERENCE 0.3; MEAN CORPUSCULAR HGB CONC 33.5 g/dL (32.0-36.0); MEAN CORPUSCULAR VOLUME 90 fl (80-97); MONOCYTES % (AUTO) 11.2 % (3-13); RED BLOOD COUNT 3.49 10^6/uL (4.35-5.55); RED CELL DISTRIBUTION WIDTH 13.6 % (11.5-14.0); SEGMENTED NEUTROPHILS % (AUTO) 66.9 % (42-78); WHITE BLOOD COUNT 10.7 10^3/uL (4.0-10.5)
[2016-10-18] MEDS: SULFAMETHOXAZOLE/TRIMETHOPRIM 800-160 MG TABLET PO SCH (09:01)
[2016-10-18] MEDS: DOCUSATE SODIUM 100 MG CAPSULE PO SCH (09:01)
[2016-10-18] MEDS: LOSARTAN POTASSIUM 50 MG TABLET PO SCH (09:01)
[2016-10-18] MEDS: METOPROLOL TARTRATE 25 MG TABLET PO SCH (09:02)
[2016-10-18] MEDS: AMLODIPINE BESYLATE 10 MG TABLET PO SCH (09:03)
[2016-10-18] MEDS: ATORVASTATIN CALCIUM 40 MG TABLET PO SCH (09:03)
[2016-10-18] MEDS: METFORMIN HCL 500 MG TABLET PO SCH (09:07)
[2016-10-18] MEDS: ENOXAPARIN SODIUM INJ 40 MG/0.4 ML DISP.SYRIN SUBCUT SCH (09:08)
--- NOTE | 2016-10-18 09:43 | PDOC DISCHARGE SUMMARY ---
General - Admit/Disc Date/PCP Admission Date/Primary Care Provider: 10/14/16 16:55 VICKY DUNAWAY MD Discharge Date: 10/18/16 - Discharge Diagnosis (1) Fever Is this a current diagnosis for this admission?: YesSummary: All resolved most likely possible from the wound versus viral infections (2) Septicemia Is this a current diagnosis for this admission?: YesSummary: All resolved (3) Foot osteomyelitis, right Is this a current diagnosis for this admission?: YesSummary: MRI is negative for any osteomyelitis he continues the p.o. antibiotic as per culture and follow-up with the foot doctor in the wound care clinic (4) Type II diabetes mellitus Is this a current diagnosis for this admission?: YesSummary: Stable continues the current p.o. medication (5) Benign essential HTN Is this a current diagnosis for this admission?: YesSummary: Under well control with the current medication (6) Stroke Is this a current diagnosis for this admission?: YesSummary: Stable (7) Upper respiratory tract infection Is this a current diagnosis for this admission?: YesSummary: Is a viral infection is all resolved - Additional Information Resuscitation Status: Full Code Discharge Diet: Diabetic Discharge Activity: Activity As Tolerated Home Medications: Acetaminophen with Codeine [Tylenol #3 Tablet] 1 each PO Q4HP PRN 10/14/16 Amlodipine Besylate [Norvasc 10 mg Tablet] 10 mg PO DAILY 10/14/16 Atorvastatin Calcium [Lipitor 40 mg Tablet] 40 mg PO DAILY 10/14/16 Gabapentin [Neurontin 300 mg Capsule] 300 mg PO Q6HP PRN 10/14/16 Losartan Potassium [Cozaar 100 mg Tablet] 100 mg PO DAILY 10/14/16 Metformin HCl [Glucophage] 500 mg PO BIDACBS 10/14/16 Metoprolol Tartrate [Lopressor 25 mg Tablet] 12.5 mg PO Q12 10/14/16 Sulfamethoxazole/Trimethoprim [Bactrim Ds Tablet] 1 each PO BID #14 tablet 10/18 History of Present Illness History of Present Illness: KASI MCCAIN JR is a 61 year old male This is a 61-year-old male with the history of the type II diabetes mellitus history of the cerebrovascular accident and history of the chronic right foot wound and currently see her Dr. Ward and also see in the wound care long time. Patient start complaining of fever since last couple of days and feeling weak not doing very well and call Dr. Ward office and suggest come to the emergency department. Patient's also complains some respiratory symptoms and mild cough pt denied any chest pain no shortness of the breath in the ER ptwhite count was elevated and patient's have a 101 fever and patient's a right foot x-ray possible osteomyelitis decided to admit in the hospital patient also received the IV vancomycin and other antibiotic. Saw the patient in the floor patient is doing well denied any foot pain to level some mild respiratory symptoms denied any other problem Hospital Course Hospital Course: This is a 61-year-old male present in the emergency departments with the fever and elevated white count with the respiratory symptoms and also have a chronic wound in infection and initially patient was started on IV antibiotic and put in the telemetry bed for possible septicemia and osteomyelitis. General surgery was consulted and suggested no need for any surgical intervention patient's flu test is negative and patient's chest x-ray is also negative and patient's all cultures negative except the wound cultures showed Staphylococcus and was sensitive to the Bactrim and patient was put on the p.o. medications and follow as outpatients the wound care for wound Since other medical problems stable and patient is discharged home with the stable condition and follow as outpatient in 1 week Physical Exam Vital Signs: Temp Pulse Resp BP Pulse Ox 98.6 F 75 20 126/66 H 97 10/18/16 08:30 10/18/16 08:30 10/18/16 08:30 10/18/16 08:30 10/18/16 08:30 Intake & Output 10/17/16 10/18/16 10/19/16 06:59 06:59 06:59 Intake Total 2338 1560 Balance 2338 1560 Weight 111.5 kg 111.6 kg General appearance: PRESENT: no acute distress, well-developed, well-nourished Head exam: PRESENT: atraumatic, normocephalic Eye exam: PRESENT: conjunctiva pink, EOMI, PERRLA. ABSENT: scleral icterus Ear exam: PRESENT: normal external ear exam Mouth exam: PRESENT: moist, tongue midline Neck exam: PRESENT: full ROM. ABSENT: carotid bruit, JVD, lymphadenopathy, thyromegaly Cardiovascular exam: PRESENT: RRR. ABSENT: diastolic murmur, rubs, systolic murmur Pulses: PRESENT: normal dorsalis pedis pul, +2 pedal pulses bilateral Vascular exam: PRESENT: normal capillary refill GI/Abdominal exam: PRESENT: normal bowel sounds, soft. ABSENT: distended, guarding, mass, organolmegaly, rebound, tenderness Rectal exam: PRESENT: deferred Extremities exam: ABSENT: pedal edema Additional comments: On the left leg the dressing is intact the right foot the dressing is intact Neurological exam: PRESENT: alert, awake, oriented to person, oriented to place , oriented to time, oriented to situation, CN II-XII grossly intact. ABSENT: motor sensory deficit Psychiatric exam: PRESENT: appropriate affect, normal mood. ABSENT: homicidal ideation, suicidal ideation Skin exam: PRESENT: dry, intact, warm. ABSENT: cyanosis, rash Results Laboratory Results: 10/18/16 06:22 10/17/16 06:33 10/18/16 06:22 WBC 10.7 H RBC 3.49 L Hgb 10.5 L Hct 31.2 L MCV 90 MCH 30.0 MCHC 33.5 RDW 13.6 Plt Count 317 Seg Neutrophils % 66.9 Lymphocytes % 17.0 Monocytes % 11.2 Eosinophils % 4.1 Basophils % 0.8 Absolute Neutrophils 7.2 Absolute Lymphocytes 1.8 Absolute Monocytes 1.2 Absolute Eosinophils 0.4 Absolute Basophils 0.1 10/14/16 18:00 Foot - Bottom Gram Stain - Final 10/14/16 18:00 Foot - Bottom Wound Culture - Final Group G Beta Streptococcus Staphylococcus Aureus No Anaerobic Organisms 10/14/16 18:00 Nasophary (Mrsa Only) MRSA Surveillance Culture - Final NO MRSA RECOVERED Impressions: Tibia/Fibula X-Ray 10/14/16 11:26 IMPRESSION: Minimal soft tissue irregularity lateral aspect of the distal left calf. Axial compromised by overlying bandage artifact. No air within the soft tissue of either tib-fib. No radiographic evidence of osteomyelitis. Foot X-Ray 10/14/16 11:27 IMPRESSION: Bandage artifact along the medial aspect of the distal foot. Slightly irregular lucent changes involving the head of the 3rd metatarsal at the metatarsophalangeal joint that could represent developing infection or osteomyelitis. Three-phase bone scan or MRI the foot may be a consideration. Other previously described findings are stable. Lower Extremity MRI 10/15/16 00:00 IMPRESSION: No evidence for osteomyelitis. No soft tissue abscess. Interval amputation of the seconds toe. Chest X-Ray 10/16/16 00:00 IMPRESSION: NO SIGNIFICANT RADIOGRAPHIC FINDING IN THE CHEST. Plan Discharge Plan: Plan is to continues the p.o. antibiotic and follow outpatients with the foot doctor and the wound care clinic. Discussed with the patient if he starts running any fever or increasing any pain follow and call md Time Spent: Greater than 30 Minutes
[2016-10-18 10:26] VITALS: BP 119/69
== END 2016-10-18 11:33 | disposition home or self-care (01) | DRG 872 ==
LOC: ER 09:38 → EH 13:16 → UNDOADMIN 13:16 → 4N 16:55 → EH 16:59
PROVIDERS: ADMIT Family Medicine; ATTEND Family Medicine
DX: A41.9 Sepsis, unspecified organism (principal); L97.419 Non-pressure chronic ulcer of right heel and midfoot with unspecified severity; I69.351 Hemiplegia and hemiparesis following cerebral infarction affecting right dominant side; M86.671 Other chronic osteomyelitis, right ankle and foot; L97.311 Non-pressure chronic ulcer of right ankle limited to breakdown of skin; L03.115 Cellulitis of right lower limb; L97.512 Non-pressure chronic ulcer of other part of right foot with fat layer exposed; E11.622 Type 2 diabetes mellitus with other skin ulcer; J06.9 Acute upper respiratory infection, unspecified; F17.210 Nicotine dependence, cigarettes, uncomplicated; I10 Essential (primary) hypertension; E11.621 Type 2 diabetes mellitus with foot ulcer; B95.61 Methicillin susceptible Staphylococcus aureus infection as the cause of diseases classified elsewhere; Z79.84 Long term (current) use of oral hypoglycemic drugs
CPT/HCPCS: 36415; 71010; 71020; 80048; 80053; 80202; 81001; 82565; 82962; 83605; 85025; 85610; 85652; 86140; 87040; 87070; 87075; 87077; 87086; 87186; 87205; 87804; 93925; 96365; 96367; 99291; 99292; J1650; J2543; J3370; J7030; J7060

== ENCOUNTER → 2017-02-05 | Outpatient (CLI) | payer OTHER ==
[2017-02-05 11:58] LABS: ABSOLUTE BASOPHILS # (AUTO) 0.1 10^3/uL (0.0-0.2); ABSOLUTE EOSINOPHILS # (AUTO) 0.7 10^3/uL (0.0-0.6); ABSOLUTE LYMPHOCYTES (AUTO) 1.7 10^3/uL (0.5-4.7); ABSOLUTE NEUT (AUTO) 4.1 10^3/uL (1.7-8.2); BASOPHILS % (AUTO) 1.3 % (0-2); EOSINOPHILS % (AUTO) 8.7 % (0-6); HEMATOCRIT 36.6 % (37.9-51.0); HEMOGLOBIN 12.6 g/dL (13.5-17.0); HGB HCT DIFFERENCE 1.2; LYMPHOCYTES % (AUTO) 23.1 % (13-45); MEAN CORPUSCULAR HEMOGLOBIN 30.5 pg (27.0-33.4); MEAN CORPUSCULAR HGB CONC 34.5 g/dL (32.0-36.0); MEAN CORPUSCULAR VOLUME 88 fl (80-97); MONOCYTES % (AUTO) 12.7 % (3-13); RED BLOOD COUNT 4.14 10^6/uL (4.35-5.55); RED CELL DISTRIBUTION WIDTH 13.4 % (11.5-14.0); SEGMENTED NEUTROPHILS % (AUTO) 54.2 % (42-78); WHITE BLOOD COUNT 7.5 10^3/uL (4.0-10.5)
[2017-02-05 12:17] LABS: ALANINE AMINOTRANSFERASE 32 U/L (21-72); ALBUMIN 4.1 g/dL (3.5-5.0); ALKALINE PHOSPHATASE 98 U/L (38-126); ANION GAP 11 (5-19); ASPARTATE AMINO TRANSFERASE 23 U/L (17-59); BILIRUBIN,DIRECT 0.3 mg/dL (0.0-0.4); BILIRUBIN,TOTAL 0.6 mg/dL (0.2-1.3); BLOOD UREA NITROGEN 15 mg/dL (7-20); CALCIUM 9.6 mg/dL (8.4-10.2); CARBON DIOXIDE 25 mmol/L (22-30); CHLORIDE 105 mmol/L (98-107); CREATININE RESULT 0.79 mg/dL (0.52-1.25); GLUCOSE 88 mg/dL (75-110); POTASSIUM 4.6 mmol/L (3.6-5.0); SODIUM 140.6 mmol/L (137-145); TOTAL PROTEIN 7.7 g/dL (6.3-8.2)
[2017-02-05 12:19] LABS: C-REACTIVE PROTEIN < 5.0 mg/L (<10.0)
[2017-02-05 12:39] LABS: ERYTHROCYTE SEDIMENTATION RATE 37 mm/hr (0-20)
--- NOTE | 2017-02-05 16:52 | RADIOLOGY REPORT (SQ) ---
EXAM DESCRIPTION: FOOT RIGHT COMPLETE COMPLETED DATE/TIME: 02/05/2017 10:58 am REASON FOR STUDY: NON-PRS CHRONIC ULCER OTH PRT RIGHT FOOT W FAT LAYER EXPOSED L97.512 NON-PRS HOMICIDE DETECTIVE DEL ULCER OTH PRT RIGHT FOOT W FAT LAYER COMPARISON: 10/14/2016 NUMBER OF VIEWS: Three views. TECHNIQUE: AP, lateral and oblique radiographic images acquired of the right foot. LIMITATIONS: None. FINDINGS: MINERALIZATION: Normal. BONES: 2nd toe has been amputated. Stable chronic bony changes involving the distal aspect of the 2n d and 3rd metatarsals. Stable chronic bony changes involving the 1st proximal phalanx. Moderate siz e calcaneal spur at the insertion of the plantar aponeurosis. Large anterior spurs off of the midfoo t. JOINTS: Severe hallux valgus with lateral subluxation of the 1st metatarsal phalangeal joint. SOFT TISSUES: Soft tissue ulcer involving the base of the great toe medially. OTHER: No other significant finding. IMPRESSION: Stable chronic bony changes as described. No evidence of acute osteomyelitis. TECHNICAL DOCUMENTATION: JOB ID: [id number] [email or web address]- All Rights Reserved
== END ==
LOC: OD 10:34
PROVIDERS: ATTEND Preventive Medicine Undersea and Hyperbaric Medicine
DX: L97.512 Non-pressure chronic ulcer of other part of right foot with fat layer exposed (principal)
CPT/HCPCS: 36415; 80053; 85025; 85652; 86140

== ENCOUNTER → 2017-09-11 | Outpatient (CLI) | payer OTHER ==
[2017-09-11 09:04] LABS: ABSOLUTE BASOPHILS # (AUTO) 0.1 10^3/uL (0.0-0.2); ABSOLUTE EOSINOPHILS # (AUTO) 0.6 10^3/uL (0.0-0.6); ABSOLUTE LYMPHOCYTES (AUTO) 2.7 10^3/uL (0.5-4.7); ABSOLUTE MONOCYTES (AUTO) 1.2 10^3/uL (0.1-1.4); ABSOLUTE NEUT (AUTO) 4.8 10^3/uL (1.7-8.2); EOSINOPHILS % (AUTO) 6.3 % (0-6); HEMATOCRIT 36.8 % (37.9-51.0); HEMOGLOBIN 12.5 g/dL (13.5-17.0); LYMPHOCYTES % (AUTO) 29.1 % (13-45); MEAN CORPUSCULAR HEMOGLOBIN 30.3 pg (27.0-33.4); MEAN CORPUSCULAR HGB CONC 34.1 g/dL (32.0-36.0); MEAN CORPUSCULAR VOLUME 89 fl (80-97); MONOCYTES % (AUTO) 12.8 % (3-13); PLATELET COUNT 343 10^3/uL (150-450); RED BLOOD COUNT 4.13 10^6/uL (4.35-5.55); SEGMENTED NEUTROPHILS % (AUTO) 50.8 % (42-78); TOTAL CELLS COUNTED % (AUTO) 100 %; WHITE BLOOD COUNT 9.4 10^3/uL (4.0-10.5)
[2017-09-11 09:33] LABS: ALANINE AMINOTRANSFERASE 30 U/L (21-72); ALBUMIN 4.3 g/dL (3.5-5.0); ALKALINE PHOSPHATASE 111 U/L (38-126); ANION GAP 10 (5-19); ASPARTATE AMINO TRANSFERASE 24 U/L (17-59); BILIRUBIN,DIRECT 0.3 mg/dL (0.0-0.4); BILIRUBIN,TOTAL 0.3 mg/dL (0.2-1.3); BLOOD UREA NITROGEN 22 mg/dL (7-20); CALCIUM 9.7 mg/dL (8.4-10.2); CARBON DIOXIDE 25 mmol/L (22-30); CHLORIDE 106 mmol/L (98-107); CHOLESTEROL 160.91 mg/dL (0-200); GLUCOSE 93 mg/dL (75-110); POTASSIUM 4.3 mmol/L (3.6-5.0); SODIUM 141.3 mmol/L (137-145); TOTAL PROTEIN 8.1 g/dL (6.3-8.2); TRIGLYCERIDES 42 mg/dL (<150)
[2017-09-11 09:44] LABS: DIRECT LDL 66 mg/dL (<100)
== END ==
LOC: OD 08:20
PROVIDERS: ATTEND Family Medicine
DX: I10 Essential (primary) hypertension (principal); E13.9 Other specified diabetes mellitus without complications; E78.5 Hyperlipidemia, unspecified
CPT/HCPCS: 36415; 80053; 80061; 83036; 85025